=== PATIENT | male | born 1945 | race Caucasian/White ===

== ENCOUNTER 2023-07-02 15:31 | Emergency (ER) | payer MEDICARE, OTHER, SELFPAY ==
[2023-07-02 15:36] VITALS: BP 111/61
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
[2023-07-02] MEDS: TYLENOL 1000 MG PO (18:28)
== END 2023-07-02 22:57 | disposition home or self-care (01) ==
LOC: EMR 15:31
PROVIDERS: EMERGENCY PHYSICIAN Student in an Organized Health Care Education/Training Program; FAMILY PHYSICIAN Family Medicine
DX: S20.219A Contusion of unspecified front wall of thorax, initial encounter (principal); X58.XXXA Exposure to other specified factors, initial encounter; F03.90 Unspecified dementia, unspecified severity, without behavioral disturbance, psychotic disturbance, mood disturbance, and anxiety
CPT/HCPCS: 99283; 71101; 73080; 73521

== ENCOUNTER 2023-09-23 11:10 | Emergency (ER) | payer MEDICARE, OTHER, SELFPAY ==
[2023-09-23 11:14] VITALS: BP 132/69
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
[2023-09-23 14:20] LABS: % Basophils 0.5 % (0-2); % Immature Granulocytes 0.4 % (0-0.5); % Lymphocytes 26.7 % (20.5-51.1); % Monocytes 7.8 % (1.7-9.3); % Neutrophils 62.6 % (42.2-75.2); Absolute Eosinophils 0.2 10^3/uL (0-0.7); Absolute Lymphocytes 2.2 10^3/uL (1.2-3.4); Absolute Monocytes 0.6 10^3/uL (0.1-0.6); Absolute Neutrophils 5.1 10^3/uL (1.4-6.5); Hematocrit 37.5 % (39.0-52.0); Hemoglobin 12.7 g/dL (13.0-18.0); Mean Corp Hgb Conc. 33.9 g/dL (33.0-37.0); Mean Corpuscular Hgb 30.8 pg (27.0-31.0); Mean Corpuscular Volume 90.8 fL (80.0-94.0); Nucleated Red Blood Cells % 0 % (-); Red Blood Cell Count 4.13 10^6/uL (4.70-6.10); Red Cell Dist. Width 13.2 % (11.5-14.5); White Blood Cell Count 8.2 10^3/uL (4.8-10.8)
[2023-09-23 14:25] LABS: Urine Albumin Negative (Neg - Trace); Urine Bilirubin Negative (Negative); Urine Character Clear (Clear); Urine Color Yellow; Urine Glucose Negative (Negative); Urine Ketone Negative (Negative); Urine Leukocyte Negative (Negative); Urine Nitrite Negative (Negative); Urine Occult Blood Negative (Negative); Urine Specific Gravity 1.015 (<1.030); Urine Urobilinogen Negative (Neg - 1+)
[2023-09-23] MEDS: TYLENOL 1000 MG PO (14:35)
[2023-09-23 14:36] LABS: ALT (SGPT) 28 U/L (0-50); AST (SGOT) 27 U/L (17-59); Alkaline Phosphatase 58 U/L (38-126); Blood Urea Nitrogen 21 mg/dl (9-20); Calcium 9.6 mg/dl (8.4-10.2); Carbon Dioxide 27 mmol/L (22-30); Chloride 106 mmol/L (98-107); Glucose 103 mg/dl (70-99); Potassium 4.5 mmol/L (3.5-5.1); Sodium 140 mmol/L (135-145); Total Bilirubin 0.3 mg/dl (0.2-1.3); Total Protein 6.7 g/dl (6.3-8.2); eGFR > 60.00
[2023-09-23 14:46] LABS: Mean Platelet Volume 9.2 fL (7.4-10.4); Platelet Count 275 10^3/uL (130-400)
== END 2023-09-23 20:06 | disposition home or self-care (01) ==
LOC: EMR 11:10
PROVIDERS: Physician Assistant; EMERGENCY PHYSICIAN Emergency Medicine; FAMILY PHYSICIAN Internal Medicine
DX: R53.1 Weakness (principal); I10 Essential (primary) hypertension; E78.00 Pure hypercholesterolemia, unspecified; I69.351 Hemiplegia and hemiparesis following cerebral infarction affecting right dominant side; I73.9 Peripheral vascular disease, unspecified; Z86.16 Personal history of COVID-19; Z94.84 Stem cells transplant status
CPT/HCPCS: 99284; 70450; 80053; 81003; 85025

== ENCOUNTER 2024-11-19 00:20 | Emergency (ER) | payer MEDICARE, OTHER, SELFPAY ==
[2024-11-19] VITALS (7 sets, daily range): BP systolic 91–124; BP diastolic 51–84; BMI 29.3
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
[2024-11-19] MEDS: TYLENOL 1000 MG PO (06:17)
[2024-11-19] MEDS: LOW STRENGTH ASPIRIN 81 MG PO (09:15)
[2024-11-19] MEDS: MOTRIN 200 MG PO (09:15)
[2024-11-19] MEDS: ZESTRIL 5 MG PO (09:15)
[2024-11-19 09:31] LABS: Urine Character Clear (Clear)
[2024-11-19 09:51] LABS: Urine Red Blood Cell 0-2 /HPF (0-2); Urine Squamous Cell 0-2 /LPF (Few); Urine White Cell 0-2 /HPF (0-5)
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
--- NOTE | 2024-11-19 10:11 | CM ---
Addendum entered by Ladan Ennis RN 11/19/24 12:15:
Received call back from Sandoval. Per Sandoval, he is planning on visiting with the patient next week sometime and will schedule an appointment with the [facility] to assist with alternative housing. Patient informed of above.
Original Note:
Received CM consult for patient returning to [facility]. Reviewed the chart and spoke with the patient at the bedside. The patient expressed his unhappiness with the facility where he has resided for over 5 years. Discussed with the patient
that he would need to return to facility for them to search and find a facility willing to accept the patient. Call placed to [facility]. Spoke with RN Stave Jointer Elle ([phone]). Elle contacted agricultural services director Gabriela
regarding patient. CM spoke with Gabriela ([phone]). Per Gabriela, patient was given a Note of Intent to Discharge in August. Per Gabriela, it is a 30 day notice to the patient informing him that once he is admitted to hospital he would not be
welcomed back. CM explained to Gabriela that the patient is not being admitted and he will be returning to facility. Gabriela contacted her window systems administrator that claimed to have completed a 302 last night. CM had Gabriela on speaker phone to hear
psychiatrist evaluation of patient. Per psychiatrist Dr. Gannon, 302 was not completed properly or called into the delegate. Per Dr. Gannon, patient is calm and not interested in any psychiatric assistance at this time and should return to
facility. Attending and RN updated. Patient informed of need to return to facility and have them work on alternative placement.
Gabriela expressed her disagreement with plan. Per Gabriela, he is disruptive and angry and difficult to deal with. Per Gabriela, he called 911 last night to be brought to hospital. CM explained to Gabriela that the patient will be returning as he is not
be admitted to our facility.
CM explained the above to the patient. Patient requested CM contact friend Sandoval Tanner ([phone]), voice message left. Additional call made to friend Saran Burt ([phone]), voice message left. Patient under impression that the friends
will be willing and able to assist patient with alternative housing. Again CM reiterated that the patient would need to return to [facility] in order to have alternative housing be arranged through that facility.
Plan: Discharge back to [facility].
Call report to: [phone] ext [phone]
== END 2024-11-19 12:00 ==
LOC: EMR 00:20
PROVIDERS: Emergency Medicine; CONSULT PHYSICIAN Nurse Practitioner Family; CONSULT PHYSICIAN Psychiatry & Neurology Psychiatry; EMERGENCY PHYSICIAN Student in an Organized Health Care Education/Training Program
DX: L89.151 Pressure ulcer of sacral region, stage 1 (principal); I69.351 Hemiplegia and hemiparesis following cerebral infarction affecting right dominant side; I69.320 Aphasia following cerebral infarction; F22 Delusional disorders; I10 Essential (primary) hypertension; E78.00 Pure hypercholesterolemia, unspecified; I73.9 Peripheral vascular disease, unspecified; N28.9 Disorder of kidney and ureter, unspecified; D64.9 Anemia, unspecified; H91.90 Unspecified hearing loss, unspecified ear; C90.01 Multiple myeloma in remission; M47.816 Spondylosis without myelopathy or radiculopathy, lumbar region; Z79.82 Long term (current) use of aspirin; Z94.84 Stem cells transplant status; Z86.16 Personal history of COVID-19
CPT/HCPCS: 99283; 81003; 81015

== ENCOUNTER 2025-01-29 13:41 | Emergency (ER) | payer MEDICARE, OTHER, SELFPAY ==
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
[2025-01-29 13:49] VITALS: BP 112/66
[2025-01-29 14:00] VITALS: BP 116/56
[2025-01-29 14:02] LABS: Glucose - Point of Care 150 mg/dl (70-99)
[2025-01-29] MEDS: NSS 1000 IV (14:04)
[2025-01-29 14:12] LABS: Hematocrit 36.6 % (39.0-52.0); Hemoglobin 12.3 g/dL (13.0-18.0); Mean Corp Hgb Conc. 33.6 g/dL (33.0-37.0); Mean Corpuscular Volume 90.4 fL (80.0-94.0); Nucleated Red Blood Cells % 0 % (-); Platelet Count 268 10^3/uL (130-400); Red Cell Dist. Width 13.3 % (11.5-14.5)
[2025-01-29 14:25] LABS: ALT (SGPT) 25 U/L (0-50); AST (SGOT) 24 U/L (17-59); Albumin 4.4 g/dl (3.5-5.0); Alkaline Phosphatase 55 U/L (38-126); Blood Urea Nitrogen 22 mg/dl (9-20); Calcium 9.3 mg/dl (8.4-10.2); Carbon Dioxide 23 mmol/L (22-30); Chloride 108 mmol/L (98-107); Glucose 154 mg/dl (70-99); Potassium 3.8 mmol/L (3.5-5.1); Sodium 140 mmol/L (135-145); Total Protein 7.2 g/dl (6.3-8.2); eGFR > 60.00
[2025-01-29 15:00] VITALS: BP 96/56
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
== END 2025-01-29 18:46 ==
LOC: EMR 13:41
PROVIDERS: EMERGENCY PHYSICIAN Emergency Medicine; OTHER PHYSICIAN Psychiatry & Neurology Psychiatry
DX: R41.82 Altered mental status, unspecified (principal); E78.00 Pure hypercholesterolemia, unspecified; I10 Essential (primary) hypertension; I69.351 Hemiplegia and hemiparesis following cerebral infarction affecting right dominant side; I73.9 Peripheral vascular disease, unspecified; Z85.79 Personal history of other malignant neoplasms of lymphoid, hematopoietic and related tissues; Z94.84 Stem cells transplant status
CPT/HCPCS: 99284; 96360; 80053; 82077; 82962; 85025

== ENCOUNTER 2025-02-19 22:07 | Observation (INO) | payer MEDICARE, OTHER, SELFPAY ==
[2025-02-19 18:19] VITALS: BP 116/71
[2025-02-19 18:23] VITALS: BP 116/71
[2025-02-19 18:50] LABS: Hematocrit 35.7 % (39.0-52.0); Hemoglobin 11.6 g/dL (13.0-18.0); Mean Corp Hgb Conc. 32.5 g/dL (33.0-37.0); Mean Corpuscular Volume 95.7 fL (80.0-94.0); Nucleated Red Blood Cells % 0 % (-); Platelet Count 278 10^3/uL (130-400); Red Cell Dist. Width 13.4 % (11.5-14.5)
[2025-02-19 19:00] VITALS: BP 101/83
[2025-02-19 19:16] LABS: ALT (SGPT) 24 U/L (0-50); AST (SGOT) 24 U/L (17-59); Albumin 3.5 g/dl (3.5-5.0); Alkaline Phosphatase 44 U/L (38-126); Blood Urea Nitrogen 22 mg/dl (9-20); Calcium 8.2 mg/dl (8.4-10.2); Carbon Dioxide 24 mmol/L (22-30); Chloride 108 mmol/L (98-107); Glucose 97 mg/dl (70-99); Potassium 4.1 mmol/L (3.5-5.1); Sodium 135 mmol/L (135-145); Total Protein 6.3 g/dl (6.3-8.2); eGFR > 60.00
--- NOTE | 2025-02-19 19:20 | ED.CVA ---
History of Present Illness
General
Chief Complaint: Oral/Mouth Problem
Source: patient and ambulance crew
Exam Limitations: none
Time Seen by Provider: 02/19/25 18:37
Nursing documentation reviewed up to this point in time: agreed with
Onset of Stroke Symptoms
Onset of symptoms known: No
Time pt last seen normal is known: No
History of Present Illness
History of Present Illness:
The patient is a 79-year-old man with a past medical history of stroke leaving him with right arm and right leg weakness and numbness, who reports that he woke up this afternoon from an nap and noticed changes of his tongue and his speech. Patient
reports he also felt woozy and dizzy at the time. Patient denies chest pain and shortness of breath. Patient denies headache and vision changes. He reports that his numbness and weakness on the right side are no worse than normal. Additionally,
paramedics report that the patient has been extremely upset with the residential where he is living. Additionally, he has been refusing to take his psychiatric meds.
Past History
Past History
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
insufficiency, lumbar DJD)
ED Past Surgical History: Orthopedic (Bilateral arm) and Tonsilectomy
Social History
Tobacco: Non-smoker
Alcohol: Occasional
Drug: None
Personal:
Living: residential
Employment: Retired
Family History
Family History: Other (Both parents are )
Review of Systems
Review of Systems
Allergies reviewed?: Yes
All Other Systems: ROS reviewed and negative except as documented in HPI and ROS
Constitutional: Reports no symptoms
EENT: Reports no symptoms
Respiratory: Reports no symptoms
Cardiac: Reports no symptoms
ABD/GI: Reports no symptoms
: Reports no symptoms
Musculoskeletal: Reports no symptoms
Skin: Reports no symptoms
Neurological: Reports other (Increase difficulty with speech and tongue movement)
Endocrine: Reports no symptoms
Hematologic/Lymphatic: Reports no symptoms
Psychiatric: Reports no symptoms
Phy Exam
Physical Exam
Physical Exam:
Physical Exam
General: Patient appears well and comfortable. Very hard of hearing
Neck: supple. Face appears symmetric
Heart: s1/s2 regular rate and rhythm,
Lungs: no acute respiratory distress. clear bilaterally
Abdomen: normal bowel sounds. not tender. no CVAT
Neuro: alert and orientedx3. Extraocular muscles intact, 4/5 strength of right arm and right leg which are chronic. 5 out of 5 strength in left arm and left leg. Dystonic appearing tongue movement. Garbled speech but
completely comprehensible.
Skin: no rash
Psychiatric: well kept. interactive and cooperative
Extremities: no edema. no calf tenderness. negative homans. good distal pulses
Scores
NIH Stroke Score
Level of Consciousness: 0 - Alert
LOC Questions: 0-Answers both correctly
LOC Commands: 0-Performs both correctly
Best Horizontal Gaze: 0-Normal
Visual Stephens: 0=Normal, no visual loss
Facial Palsy: 0=Normal, symmetrical
Motor - Right Arm: 1=Drift < 10 seconds
Motor - Left Arm: 0=No drift 10 seconds
Motor - Right Le-Drift < 5 seconds
Motor - Left Le-No drift 5 seconds
Limb Ataxia: 0-Absent
Sensation: 0-Normal
Best Language: 0-No aphasia
Dysarthria: 1-Mild slurring
Extinction and Inattention: 0-No abnormality
NIH Total Score:: 3
Course
Orders/Labs/Results
Orders:
Orders
02/19/25 18:32
EKG [Electrocardiogram (*1)] Urgent
Reason for Study: TIA/Stroke
02/19/25 18:33
EKG- Treatment ONCE
02/19/25 18:36
Complete Blood Count/With Diff Urgent
Comprehensive Metabolic Panel Urgent
02/19/25 18:45
CT Head & Neck Angio W/wo IV Urgent
Comment:
Reason For Exam: slurred speech
02/19/25 21:25
Admit/Transfer Patient As Directed
Co-Sign Provider:
Level of Care: Observation services
Assign to:: Telemetry
Physician / Group: candida
Diagnosis: cva vs tia
Reason for Telemetry: Arrhythmia
Date to Stop Telemetry: 02/22/25
Time to Stop Telemetry: 11:00
PRN Pain Medication Management As Directed
May give lesser potent ordered pain med per pt: Yes
preference::
Protocol:: Medication orders for pain may be administered in a
manner that supports deferring to patient preference
when the pt is:
- Requesting an ordered lesser potent pain medication.
Least to most potent pain medications are defined
as: acetaminophen < NSAID < tramadol < opioids
(morphine, oxycodone, hydromorphone).
- Requesting a lesser dose of the same medication IF
ORDERED.
- Requesting a less intrusive route of administration
if both routes are prescribed by the provider (PO <
IV).
02/19/25 21:26
Code Status As Directed
Resuscitation Status: Full Code
02/22/25 11:00
DC Protocol for Telemetry ONCE
Abnormal Lab Results
02/19/25
18:36
RBC 3.73 L 10^6/uL
(4.70-6.10)
Hgb 11.6 L g/dL
(13.0-18.0)
Hct 35.7 L %
(39.0-52.0)
MCV 95.7 H fL
(80.0-94.0)
MCH 31.1 H pg
(27.0-31.0)
MCHC 32.5 L g/dL
(33.0-37.0)
Absolute Monos (auto) 0.8 H 10^3/uL
(0.1-0.6)
Monocytes % 9.6 H %
(1.7-9.3)
Chloride 108 H mmol/L
(98-107)
BUN 22 H mg/dl
(9-20)
Calcium 8.2 L mg/dl
(8.4-10.2)
02/19/25 18:36
02/19/25 18:36
Vital Signs
Initial and Last Documented VS:
Initial Vital Signs
BP
116/71
02/19/25 18:19
Last Documented Vital Signs
Pulse Resp BP Pulse Ox
80 20 123/65 97
02/19/25 22:00 02/19/25 22:00 02/19/25 22:00 02/19/25 19:20
MDM/Problems Addressed
Differential Diagnosis Includes:
Dystonic reaction, acute CVA
MDM/Problems Addressed:
Patient presents with abnormal tongue movements and increased garbled speech
Chronic conditions affecting care: HTN
Acute Exacerbation and/or Progression of Chronic Illness:
Blood pressure acutely normotensive and well-controlled at this time
*Radiology
Radiology exam reviewed: radiology read reviewed
*Pulse Oximetry
SaO2: 97
Oxygen Mode of Delivery: Room air
Patient hypoxic: no
*EKG
Interpreted by ED Provider?: Yes
Interpretation: normal
Comparison EKG: no comparison EKG present
Rate: normal
Rhythm: sinus
Valentine: normal axis
Interval: normal interval
QRS Pattern: normal QRS
Ischemia: no ischemia
*News Correspondent Interpretation
Rate: normal
Interpretation: normal
Rhythm: sinus
*Critical Care Note
Total Time (30-74mins, 75-104mins- exclusive of procedures): Not Applicable
Data Reviewed
Review of Other/Old Records Reveals: Discharge Summary (Discharge summary reviewed from 2022 when patient was admitted for sigmoid diverticulitis)
Source: patient, ambulance crew and residential records
Patient Management
Social determinants of health affecting care: Living situation and Strong social support
ED Attending Note
-
Portions of this chart may have been created with voice recognition software.� Occasional wrong word or��sound alike� substitutions may have occurred due to the inherent limitations of voice recognition software.
Discharge Plan
Departure
Patient Disposition: Admit
Date of Disposition: 02/19/25
Time of Disposition: 20:59
Admit to: Telemetry
Presentation/result/management discussed w/ accepting MD/DO: Hospitalist
Patient with high blood pressure during this ER visit?: No
Condition: Good
Discharge Problem:
Acute cerebrovascular accident (CVA)
Interventions
Interventions:
*Risk Screen - Suicide Last Done: 02/19/25 18:28
*General Assessment Last Done: 02/19/25 18:28
*Neglect/Abuse Screening Last Done: 02/19/25 18:28
*ED- Fall Risk Assessment Last Done: 02/19/25 20:42
*ED COVID-19 Vaccine History Last Done: 02/19/25 20:42
*ED Influenza Vaccine History Last Done: 02/19/25 20:42
--- NOTE | 2025-02-19 21:30 | HPS.HSE ---
Family Physician
-
Family Physician: NOT KNOW UNKNOWN - PT DOES
Chief Complaint
-
speaking, tongue abnormal
History of Present Illness
79-year-old male past medical history of psychiatric illness not otherwise specified, hypertension, multiple myeloma status post stem cell transplant, BPH, CVA with residual right-sided weakness, hyperlipidemia, peripheral vascular disease,
nephrolithiasis, hearing impairment, presents with feeling 'whoozy' and dizzy with difficulty speaking and abnormal sensation of his tongue after he woke up from his nap today. Denies any difficulty swallowing denies any headache or visual changes.
He has chronic weakness and numbness on his right side as well as the right thigh vision loss from prior CVA there is no worse than normal. Paramedics also noted the patient has been extremely upset with the [facility] where he lives. He has
been refusing to take his psychiatric medications because he does not need them.
His symptoms are improved at this time.
Denies smoking or alcohol use.
Medical History
Past Medical History
Past Medical History: Reports Other (psychiatric illness not otherwise specified, hypertension, multiple myeloma status post stem cell transplant, BPH, CVA with residual right-sided weakness, hyperlipidemia, peripheral vascular disease,
nephrolithiasis, hearing impairment)
Past Surgical History: Reports Other (Orthopedic (Bilateral arm) and Tonsilectomy)
Social History
Tobacco: Non-smoker
Alcohol: None
Drug: None
Family History
Family History: Not pertinent
Allergies / Home Medications
Allergies reflects when Allergies were last updated in [employer].
Home Medications with original date entered in [employer]
Allergy/Medication List:
Allergies
Allergy/AdvReac Type Severity Reaction Status Date / Time
No Known Allergies Allergy Verified 11/19/24 00:38
Home Medications
acetaminophen 500 mg tablet (Tylenol Extra Strength) 1,000 mg PO TID Pain 08/27/22
aspirin 81 mg chewable tablet (Aspirin Childrens) 81 mg PO DAILY Blood clot prevention/tx 08/27/22
bisacodyl 10 mg rectal suppository (Dulcolax (bisacodyl)) 10 mg MT DAILY PRN if no bm aftr mom 08/27/22
latanoprost 0.005 % eye drops 1 drp BOTH EYES HS Eye condition 08/27/22
lidocaine 5 % topical patch (Lidoderm) 1 patch transdermal DAILY left hip 08/27/22
lisinopril 5 mg tablet 5 mg PO DAILY Blood pressure 08/27/22
magnesium hydroxide 400 mg/5 mL oral suspension (Milk of Magnesia) 2,400 mg PO [id number] PRN if no bm on 3rd day 08/27/22
sodium phosphates 19 gram-7 gram/118 mL enema (Fleet Enema) 118 ml MT DAILYPRN PRN if no bm on 4th day 08/27/22
therapeutic multivitamin 1 tab PO DAILY Supplement 08/27/22
Review of Systems
-
History Source: Patient
A 12 point ROS was completed and negative except as noted: Yes
Constitutional: Reports No Symptoms
EENT: Reports No Symptoms
Respiratory: Reports No Symptoms
Cardiac: Reports No Symptoms
Abdomen/GI: Reports No Symptoms
: Reports No Symptoms
Musculoskeletal: Reports No Symptoms
Skin: Reports No Symptoms
Neurological: Reports No Symptoms
Endocrine: Reports No Symptoms
Hematologic/Lymphatic: Reports No Symptoms
Psych: Reports No Symptoms
Physical Exam
Vital Signs
Vital Signs
Pulse Resp BP Pulse Ox
77 18 116/71 97
02/19/25 18:28 02/19/25 18:28 02/19/25 18:23 02/19/25 19:20
Physical Exam
General: Well Developed, Well Nourished and No Apparent Distress
HEENT: NormoCephalic, Moist mucous membranes and Atraumatic
Respiratory: Clear
Cardiac: S1/S2 and Regular Rhythm; No Murmur or Rub
GI: Soft, Non Tender, Non Distended and Normal Bowel Sounds; No Organomegaly
Rectal: Deferred by Provider
Musculoskeletal: No Clubbing, No Cyanosis and No Edema
Skin: No Rash
Neuro: Nonfocal/grossly intact
Laboratory Results
-
02/19/25 18:36
02/19/25 18:36
Laboratory Results
Total Bilirubin 0.3 mg/dl (0.2-1.3) 02/19/25 18:36
AST 24 U/L (17-59) 02/19/25 18:36
ALT 24 U/L (0-50) 02/19/25 18:36
Alkaline Phosphatase 44 U/L (38-126) 02/19/25 18:36
Data Reviewed
-
Lab Data: Labs Reviewed by me
Old Records: Reviewed
Impression/Plan
-
IMPRESSION:
PLAN:
# Speech difficulty/dysarthria concerning for new acute CVA versus TIA
# History of prior CVA of left occipital/left temporal lobe with residual right-sided weakness and right thigh vision loss
-NIH of 3 for right arm and right leg drift and slurred speech although drift is sequelae from prior CVA and not new symptom
- CT head shows large old infarct within the left occipital lobe and left temporal lobe, no acute infarct, benign calcification within the right basal ganglia
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
-Continue aspirin and add plavix
- MRI brain
-Speech and swallow
- Neurology consulted
History of psychiatric illness not otherwise specified
- Not taking psychiatric medications but he does not believe he has any psychiatric problem
Essential hypertension
- Continue lisinopril
Multiple myeloma status post stem cell transplant
BPH
Hyperlipidemia
Peripheral vascular disease
Nephrolithiasis
Hearing impairment
Chronic anemia
- Hemoglobin stable
Full code
DVT prophylaxis�SCDs
Regular diet
[2025-02-19 21:42] VITALS: BP 142/84
[2025-02-19 22:00] VITALS: BP 123/65
[2025-02-19 22:45] VITALS: BP 136/81; BMI 27.3
[2025-02-19] MEDS: TYLENOL 1000 MG PO (23:58)
[2025-02-20] MEDS: PLAVIX 300 MG PO (00:03)
--- NOTE | 2025-02-20 01:28 | TRANSFER ---
Pt transferred to 3W from ED via stretcher. Pt pulled over to hospital bed. Pt AAOx3, oriented to room, call montano within reach, plan of care ongoing.
[2025-02-20 03:00] VITALS: BP 113/67
[2025-02-20 07:28] VITALS: BP 122/66
--- NOTE | 2025-02-20 07:32 | W.PN.HOSP.TC ---
Today's Communication/Plan
-
Pending MRI, can be discharged if MRI negative.
Assessment / Plan
Assessment / Plan
Impression:
79-year-old male past medical history of psychiatric illness not otherwise specified, hypertension, multiple myeloma status post stem cell transplant, BPH, CVA with residual right-sided weakness, hyperlipidemia, peripheral vascular disease,
nephrolithiasis, hearing impairment, presents with feeling 'whoozy' and dizzy with difficulty speaking and abnormal sensation of his tongue after he woke up from his nap today. Denies any difficulty swallowing denies any headache or visual changes.
He has chronic weakness and numbness on his right side as well as the right thigh vision loss from prior CVA there is no worse than normal. Paramedics also noted the patient has been extremely upset with the long-term where he lives. He has
been refusing to take his psychiatric medications because he does not need them.
His symptoms are improved at this time. Denies smoking or alcohol use.
Admitted to rule out stroke.
MRI ordered
Assessment/plan:
# Speech difficulty/dysarthria concerning for new acute CVA versus TIA
# History of prior CVA of left occipital/left temporal lobe with residual right-sided weakness and right thigh vision loss
-NIH of 3 for right arm and right leg drift and slurred speech although drift is sequelae from prior CVA and not new symptom
- CT head shows large old infarct within the left occipital lobe and left temporal lobe, no acute infarct, benign calcification within the right basal ganglia
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
-Continue aspirin and add plavix
- MRI brain pending
-Speech and swallow
- Neurology consulted
History of psychiatric illness not otherwise specified
- Not taking psychiatric medications but he does not believe he has any psychiatric problem
Essential hypertension
- Continue lisinopril
Multiple myeloma status post stem cell transplant
BPH
Hyperlipidemia
Peripheral vascular disease
Nephrolithiasis
Hearing impairment
Chronic macrocytic anemia
- Hemoglobin stable
CODE STATUS: Full code
DVT prophylaxis: SCDs
Diet: Regular diet
Disposition: Pending MRI
Total time spent on today's encounter was 55 minutes which included time spent in counseling the patient/family regarding diagnosis and treatment plan as listed above, goals of care, and symptom management. Case was discussed with nursing staff,
specialists, and care coordinators/case management. All labs and imaging personally reviewed by me. Remainder the time spent in detailed review of previous records, lab data, imaging, and other medical provider documentation.
Anticipated Discharge: Today
Subjective/Interval History
-
Date of Service: February 20, 2025
Patient seen and examined at bedside, denies any chest pain or shortness of breath, back to baseline.
Objective Data
-
Labs:
Laboratory Results
02/20/25
06:59
WBC Pending
Hgb Pending
Hct Pending
Plt Count Pending
Sodium Pending
Potassium Pending
Chloride Pending
Carbon Dioxide Pending
BUN Pending
Creatinine Pending
Glucose Pending
Calcium Pending
Total Bilirubin Pending
AST Pending
ALT Pending
Alkaline Phosphatase Pending
Vital Signs:
Vital Signs
Temp Pulse Resp BP Pulse Ox
98.5 F 69 18 122/66 97
02/20/25 07:28 02/20/25 07:28 02/20/25 07:28 02/20/25 07:28 02/20/25 07:28
I&O
02/19/25 02/20/25 02/21/25
05:59 06:59 06:59
Intake Total 240 / 240
Output Total 650 / 650
Balance -410 / -410
Physical Exam
-
General: Well Developed, Well Nourished, No Apparent Distress and Comfortable
HEENT: Normocephalic, Atraumatic, Moist Mucous Membranes, No Ptosis, PERRLA and Nose Appears Normal
Respiratory: Clear to Auscultation and Non Labored Respirations
Cardiac: Regular Rhythm and S1/S2
Breast: Deferred by me
GI: Soft, Nontender, Nondistended and Normal Bowel Sounds
Genito-urinary: No Costovertebral Tender
Musculoskeletal: No Clubbing, No Cyanosis and No Edema
Skin: Warm
Neuro: Awake, Alert, Oriented, AO x 3 and No Motor Deficits
Psych: Calm
Data Reviewed
-
Diagnostic Radiology: Image personally visualized and interpreted and Report Reviewed by me
CT Scan: Image personally visualized and interpreted and Report Reviewed by me
Ultrasound: Image personally visualized and interpreted and Report Reviewed by me
MRI: Image personally visualized and interpreted and Report Reviewed by me
Medical Tests (Nuc Med, Echo etc): Image personally visualized and interpreted and Report Reviewed by me
Labs: Labs Reviewed by me
Old Records: Reviewed
[2025-02-20 07:39] LABS: Hematocrit 35.1 % (39.0-52.0); Hemoglobin 12.0 g/dL (13.0-18.0); Mean Corp Hgb Conc. 34.2 g/dL (33.0-37.0); Mean Corpuscular Volume 91.9 fL (80.0-94.0); Nucleated Red Blood Cells % 0 % (-); Platelet Count 271 10^3/uL (130-400); Red Cell Dist. Width 13.1 % (11.5-14.5)
[2025-02-20] MEDS: ASPIR LOW (ENTERIC COATED) 81 MG PO (07:59)
[2025-02-20 08:06] LABS: ALT (SGPT) 26 U/L (0-50); AST (SGOT) 23 U/L (17-59); Albumin 3.8 g/dl (3.5-5.0); Alkaline Phosphatase 49 U/L (38-126); Blood Urea Nitrogen 20 mg/dl (9-20); Calcium 9.1 mg/dl (8.4-10.2); Carbon Dioxide 25 mmol/L (22-30); Chloride 106 mmol/L (98-107); Estimated Creatinine Clearance 54 ml/min; Glucose 98 mg/dl (70-99); Potassium 4.4 mmol/L (3.5-5.1); Sodium 140 mmol/L (135-145); Total Protein 6.4 g/dl (6.3-8.2); eGFR > 60.00
[2025-02-20] MEDS: PLAVIX 75 MG PO (09:59)
--- NOTE | 2025-02-20 10:02 | VATNOTE ---
Patient requested IV be removed because it was bothering him. Patient refused restart stating he feels as though he doesn't have a need for an IV at this time. Patient also stated that if he were to need an IV, he wants it in his right arm; patient
with history of stroke, causing numbness in right arm. Patient educated on reasoning for why right arm should not be used for an IV. JEAN-PIERRE laureano.
--- NOTE | 2025-02-20 10:27 | CON.NEURO4 ---
Addendum entered and electronically signed by Jacky Sullivan MD 02/20/25 15:17:
Studies reviewed.
I have personally examined the patient. I reviewed and agree with the [employer]'s Note.
My addenda:
Awake, alert, interactive. No acute distress.
Speech mildly thick, pressured.
Follows 2-step requests w/o difficulty. No tremor.
Extra-ocular movements grossly intact.
Facial movements full and symmetric. Hearing intact to normal conversational volume.
Unable to extend right upper extremity fully. Is able to extend left upper extremity fully
Neck: full ROM.
Chest: no dyspnea
Heart: no JVD
Ext: (-) Clubbing, (-) Cyanosis, (-) Edema
IMPRESSIONS/RECOMMENDATIONS:
Abrupt onset of worsening speech after awakening from a nap also associated with a sense of dizziness and possible hypotension.
Differential diagnosis includes acute ischemic stroke as well as relative hypotension
Await MRI of brain
Follow blood pressures with orthostatic blood pressures
Rehabilitation evaluations and treatment
Continue combination of aspirin and clopidogrel at this time with reconsideration of the clopidogrel if there is no evidence of a new ischemic lesion
D/W patient
All questions answered.
Will continue to follow pending results.
Original Note:
Documented by User: Deena Granados NP 02/20/25 14:17
Consultation - Neurology 4
-
CONSULTING PHYSICIAN: Jacky Sullivan MD
REFERRING PHYSICIAN: Hospitalists/Dr. Felix
DICTATED BY: CLYDE Wilkins
DATE/TIME OF REQUEST: 02/19/25
DATE/TIME OF CONSULTATION: 02/20/25
Reason for Consultation: Speech difficulty
History of Present Illness:
This is a 79-year-old male who has presented to the hospital with report of speech difficulty. Patient reports that yesterday he was watching football after lunch when he fell asleep for about 30-60 minutes. When he woke up around 1530 he reports
'not feeling normal.' He felt dizzy and his speech felt slow and thick. He also notes that the sensation and strength in his right arm and leg became worse than baseline. He checked his blood pressure and reports it was low, around 90/60. CTA
head/neck was obtained on arrival and is negative for any acute abnormalities. Today (02/20/25), he reports that the dizziness has resolved but his speech abnormalities have persisted. He denies any headache, vision changes, swallowing difficulty,
and left-sided symptoms.
Past Medical History: Large old left occipital and temporal ischemic stroke in the setting of COVID 2019 with residual R hemiparesis and a R homonymous hemianopsia, HTN, HLD, multiple myeloma s/p stem cell transplant 2017, major depressive
disorder with behavioral disturbance, hearing impairment, PVD, anemia, lumbar DJD, renal insufficiency, diverticulitis, insomnia
Surgical History: Orthopedic, tonsillectomy
Family History: Reviewed and noncontributory.
Social History: Occasional alcohol. Denies tobacco and illicit drug use.
Allergies: No known allergies.
Home Medications: See below.
Review of Symptoms:
Patient denies any fever, headache, chest pain, shortness of breath, GI or symptoms.
�Per the HPI.�All systems are reviewed negative except above.
Physical Exam:
The patient is afebrile, abdomen is nondistended, breathing is unlabored, skin is warm and dry, no edema.
NIH Stroke Scale:
I performed the NIH stroke scale on the patient on 02/20/25 at 1040. The patient scored 7 points on the NIH stroke scale assessment, which were assigned as follows: See below.
Neurologic Examination:
The patient is awake, alert and oriented x 3. He is able to follow commands and answer questions appropriately. There is no aphasia. There is moderate dysarthria. On cranial nerve assessment, pupils are 3 mm bilateral, round and reactive to light
and accommodation. Slight ptosis on the left. There is a right homonymous hemianopsia. Extraocular movements are intact. Facial sensations are intact and bilaterally symmetrical, there is no facial asymmetry. Hearing is reduced bilaterally to normal
conversation volume with hearing aids in. Tongue palate and uvula are midline. Sternocleidomastoid strengths are full bilaterally. Motor strengths are 5/5 left upper, 4/5 RUE (reduced proximal ROM), 5/5 LLE, and 4+/5 right lower extremities on
medical research [place] scale. There is no drift or involuntary movement noted. Deep tendon reflexes are 3+ bilateral upper and 2+ bilateral lower extremities and Babinski is absent bilaterally. There was extinction noted on double simultaneous
stimulation on the right side. Coordination is ataxic by finger to nose in the RUE.
Lab Results: See below.
Neuro Imaging:
1. CTA head/neck 02/20/25: No acute intracranial process. Encephalomalacia within the left temporal occipital lobe. Chronic hyperdensity within the right caudate and putamen which is likely sequelae of vascular malformation. No large vessel
occlusion. There is an arteriovenous malformation within the right frontal lobe/basal ganglia which appears to demonstrate arterial supply via branches of the middle cerebral artery with draining veins extending to the inferolateral right frontal
lobe cortical veins. Additionally there is a 1 mm outpouching along the paraclinoid right ICA which may represent a small infundibulum or aneurysm. Likely chronic occlusion of the left posterior cerebral artery. No significant arterial stenosis.
Mild atherosclerotic calcifications of the left carotid bifurcation without significant stenosis.
Differentials for the patient's presentation include:
1. Worsening of baseline dysarthria and transient dizziness; cannot entirely exclude an acute small ischemic stroke.
2. Old large left temporal and occipital ischemic stroke with residual R hemiparesis and a right homonymous hemianopsia.
Patient has the following risk factors for their symptoms: Hx stroke
IV Tenecteplase/IAT candidacy: Not a candidate due to low NIHSS and no LVO.
Recommendations:
-Continue DAPT with aspirin 81mg and clopidogrel 75mg daily for 21 days. Aspirin efficacy testing pending.
-Goal normotension.
-MRI brain noncontrast pending.
-LDL goal <70. LDL is 80. Continue newly initiated atorvastatin 40mg.
-Goal normoglycemia, hbA1c is pending.
-NIHSS and neurological checks per unit guidelines.
-Provide patient with a stroke education packet.
-PT/OT/ST evaluations.
-DVT prophylaxis.
Discussed patient care with: Dr. Sullivan, the patient
Vital Signs and Labs
-
Vital Signs and Labs:
Vital Signs
Temp Pulse Resp BP Pulse Ox
98.5 F 69 18 122/66 97
02/20/25 07:28 02/20/25 07:28 02/20/25 07:28 02/20/25 07:28 02/20/25 07:28
Lab Results
02/20/25 06:59
02/20/25 06:59
Sodium 140 mmol/L (135-145) 02/20/25 06:59
Potassium 4.4 mmol/L (3.5-5.1) 02/20/25 06:59
BUN 20 mg/dl (9-20) 02/20/25 06:59
Glucose 98 mg/dl (70-99) 02/20/25 06:59
Calcium 9.1 mg/dl (8.4-10.2) 02/20/25 06:59
Medications
-
Active Medications
Generic Name Dose Route Start Last Admin
Trade Name Freq PRN Reason Stop Dose Admin
Aspirin 81 mg 02/20/25 08:00 02/20/25 07:59
Aspirin 81 Mg (Enteric Coated) Tablet PO 03/20/25 07:59 81 mg
DAILY JACKELIN Administration
Atorvastatin Calcium 40 mg 02/20/25 18:00
Atorvastatin (Lipitor) 40 Mg Tablet PO 03/20/25 17:59
QPM JACKELIN
Clopidogrel Bisulfate 75 mg 02/20/25 09:00 02/20/25 09:59
Clopidogrel 75 Mg Tablet PO 03/13/25 08:59 75 mg
DAILY JACKELIN Administration
Home Medications
�Medication �Instructions �Recorded
acetaminophen 500 mg tablet 1,000 mg PO TID Pain 08/27/22
(Tylenol Extra Strength)
aspirin 81 mg chewable tablet 81 mg PO DAILY Blood clot 08/27/22
(Aspirin Childrens) prevention/tx
bisacodyl 10 mg rectal suppository 10 mg GA DAILY PRN if no bm aftr 08/27/22
(Dulcolax (bisacodyl)) mom
latanoprost 0.005 % eye drops 1 drp BOTH EYES HS Eye condition 08/27/22
lidocaine 5 % topical patch 1 patch transdermal DAILY left hip 08/27/22
(Lidoderm)
lisinopril 5 mg tablet 5 mg PO DAILY Blood pressure 08/27/22
magnesium hydroxide 400 mg/5 mL 2,400 mg PO [id number] PRN if no bm 08/27/22
oral suspension (Milk of Magnesia) on 3rd day
sodium phosphates 19 gram-7 118 ml GA DAILYPRN PRN if no bm on 08/27/22
gram/118 mL enema (Fleet Enema) 4th day
therapeutic multivitamin 1 tab PO DAILY Supplement 08/27/22
NIH Stroke Score
Subsequent NIH Scale
Date of Subsequent NIH Scale: 02/20/25
Time of Subsequent NIH Scale: 10:40
NIH Stroke Score
Level of Consciousness: 0 - Alert
LOC Questions: 0-Answers both correctly
LOC Commands: 0-Performs both correctly
Best Horizontal Gaze: 0-Normal
Visual Stephens: 2=Full hemianopia
Facial Palsy: 1=Minor paralysis
Motor - Right Arm: 0=No drift 10 seconds
Motor - Left Arm: 0=No drift 10 seconds
Motor - Right Le-Drift < 5 seconds
Motor - Left Le-No drift 5 seconds
Limb Ataxia: 1-Present in one limb
Sensation: 1-Mild loss
Best Language: 0-No aphasia
Dysarthria: 1-Mild slurring
Extinction and Inattention: 1-Sensory inattention
NIH Total Score:: 8
Modified Caldwell (mRS) Score
Modified Colin Scale (mRS): Moderately severe disability. Unable to attend to bodily needs/walk.
Score: 4
Alteplase Contraindication
Inclusion and Exclusion criteria reviewed: Yes

Documented by User: Jacky Sullivan MD 02/20/25 15:09
NIH Stroke Score
NIH Stroke Score
NIH Total Score:: 8
Modified Caldwell (mRS) Score
Score: 4
[2025-02-20 11:13] VITALS: BP 142/68
[2025-02-20 11:22] LABS: HDL Cholesterol 45 mg/dl; LDL Cholesterol, Calculated 80 mg/dl; Very Low Density Lipoprotein 26 mg/dl (0-30)
[2025-02-20] MEDS: MOTRIN 400 MG PO (12:55)
[2025-02-20] MEDS: TYLENOL 1000 MG PO (12:56)
[2025-02-20 13:01] VITALS: BP 137/85; PULSE 81; O2SAT 97
--- NOTE | 2025-02-20 13:04 | CM ---
Addendum entered by Jeana Rondon 02/20/25 16:20:
IA and OCAMPO form completed. added to chart.
Patient for transfer back to [facility] at 5:45 via BLS, [place] at [facility] updated.
Patient requested attorneys in the area and in the [facility] area, list provided.
Patient wanted to know who is listed as his POA- names provided.
Original Note:
Patient seen bedside.
Patient LTC resident at [facility], per [place] no auth required for return.
He is part of the [facility] and a [employer] will eval once he returns to see if auth is needed.
Await MRI, per MD notes if neg can return to facility.
[facility]
report# x [id number]
fax# [phone]
Plan: Back to [facility] when stable.
--- NOTE | 2025-02-20 15:13 | W.DCSUMMARY ---
Discharge Summary
Discharge Data
Date of Admission: 02/19/25
Date of Discharge: 02/20/25
Total time spent discharging patient (in min): 40
-
Pending Results: No
Hospital Course
Hospital course
79-year-old male past medical history of psychiatric illness not otherwise specified, hypertension, multiple myeloma status post stem cell transplant, BPH, CVA with residual right-sided weakness, hyperlipidemia, peripheral vascular disease,
nephrolithiasis, hearing impairment, presents with feeling 'whoozy' and dizzy with difficulty speaking and abnormal sensation of his tongue after he woke up from his nap today. Denies any difficulty swallowing denies any headache or visual changes.
He has chronic weakness and numbness on his right side as well as the right thigh vision loss from prior CVA there is no worse than normal. Paramedics also noted the patient has been extremely upset with the snf where he lives. He has
been refusing to take his psychiatric medications because he does not need them.
His symptoms are improved at this time. Denies smoking or alcohol use.
Admitted to rule out stroke.
MRI ordered shows No evidence of acute intracranial abnormality.
There is recommending aspirin/Plavix for 21 days then aspirin alone.
Start Lipitor 40 mg daily
During hospitalization patient was treated from the following
# Speech difficulty/dysarthria concerning for new acute CVA versus TIA
# History of prior CVA of left occipital/left temporal lobe with residual right-sided weakness and right thigh vision loss
-NIH of 3 for right arm and right leg drift and slurred speech although drift is sequelae from prior CVA and not new symptom
- CT head shows large old infarct within the left occipital lobe and left temporal lobe, no acute infarct, benign calcification within the right basal ganglia
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
-Continue aspirin and add plavix
- MRI brain shows No evidence of acute intracranial abnormality.
-Speech and swallow
- Neurology consulted
History of psychiatric illness not otherwise specified
- Not taking psychiatric medications but he does not believe he has any psychiatric problem
Essential hypertension
- Continue lisinopril
Multiple myeloma status post stem cell transplant
BPH
Hyperlipidemia
Peripheral vascular disease
Nephrolithiasis
Hearing impairment
Chronic macrocytic anemia
- Hemoglobin stable
CODE STATUS: Full code
DVT prophylaxis: SCDs
Diet: Regular diet
Disposition: Discharged back to [facility].
Total time spent on today's encounter was 40 minutes which included time spent in counseling the patient/family regarding diagnosis and treatment plan as listed above, goals of care, and symptom management. Case was discussed with nursing staff,
specialists, and care coordinators/case management. All labs and imaging personally reviewed by me. Remainder the time spent in detailed review of previous records, lab data, imaging, and other medical provider documentation.
Anticipated Discharge: Today
Discharge Plan
-
Patient Disposition: Fpc/SNF
Discharge Diagnosis/Procedures: Speech difficulty/dysarthria concerning for new acute CVA versus TIA.
Essential hypertension
Diet: As tolerated and Regular
Referrals:
pcp [Other] - in less than 1 week
Jacky Sullivan MD [Active, Neurology] - in three to four weeks
Prescriptions:
New
atorvastatin 40 mg Tablet
40 mg PO QPM Qty: 0 0RF
clopidogrel 75 mg Tablet
75 mg PO DAILY Qty: 21 0RF
Continued
latanoprost 0.005 % Drops
1 drp BOTH EYES DAILY
Patient Comments:
Pt prefers taking after lunch
therapeutic multivitamin Tablet
1 tab PO DAILY
acetaminophen [Tylenol Extra Strength] 500 mg Tablet
1,000 mg PO TID
bisacodyl [Dulcolax (bisacodyl)] 10 mg Suppository
10 mg IA DAILY PRN (Reason: if no bm aftr mom)
Patient Comments:
never administered
lidocaine [Lidoderm] 5 % Adhesive Patch,Medicated
1 patch transdermal DAILY
Patient Comments:
not used for long time. does not want it
Fleet Enema 19-7 gram/118 mL Enema
118 ml IA DAILYPRN PRN (Reason: if no bm on 4th day)
Patient Comments:
never administered
aspirin [Aspirin Childrens] 81 mg tablet,chewable
81 mg PO DAILY
lisinopril 5 mg Tablet
5 mg PO DAILY
magnesium hydroxide [Milk of Magnesia] 400 mg/5 mL Suspension
2,400 mg PO [id number] PRN (Reason: if no bm on 3rd day)
Patient Comments:
never administered
Discharge Orders:
Discharge Patient (As Directed); Ordered 02/20/25
Ordered By: Ramona Flower
Discharge Date and Time
Print Language: DANISH
[2025-02-20 16:03] VITALS: BP 114/70
[2025-02-20] MEDS: TYLENOL PO ×2 (16:11→16:23)
[2025-02-20] MEDS: ZESTRIL 5 MG PO (16:16)
[2025-02-20] MEDS: LIPITOR 40 MG PO (17:02)
== END 2025-02-20 17:50 ==
LOC: 3 WEST ACU 22:07
PROVIDERS: ADMITTING PHYSICIAN Hospitalist; ATTENDING PHYSICIAN General Practice; CONSULT PHYSICIAN Psychiatry & Neurology Neurology; EMERGENCY PHYSICIAN Emergency Medicine
DX: R47.1 Dysarthria and anarthria (principal); I10 Essential (primary) hypertension; C90.00 Multiple myeloma not having achieved remission; N40.0 Benign prostatic hyperplasia without lower urinary tract symptoms; I73.9 Peripheral vascular disease, unspecified; N20.0 Calculus of kidney; H91.90 Unspecified hearing loss, unspecified ear; D53.9 Nutritional anemia, unspecified; I69.351 Hemiplegia and hemiparesis following cerebral infarction affecting right dominant side; E78.5 Hyperlipidemia, unspecified; Z79.899 Other long term (current) drug therapy; Z79.02 Long term (current) use of antithrombotics/antiplatelets
CPT/HCPCS: 70496; 70498; 70551; 80053; 80061; 85025; 92523; 93005; 97163; 97167; 99282; G0378; Q9967